=== PATIENT | female | born 2000 | race Two or more races ===

== ENCOUNTER 2019-04-25 06:03 | Emergency (ER) | payer OTHER ==
[~2019-04-25] VITALS: Ht 170.2 cm; Wt 66.7 kg
== END 2019-04-25 14:55 | disposition home or self-care (01) ==
LOC: ER 06:03
DX: N39.0 Urinary tract infection, site not specified (principal); R10.2 Pelvic and perineal pain

== ENCOUNTER 2019-05-08 07:38 | Outpatient (CLI) | payer OTHER | END 2019-05-08 07:45 | disposition home or self-care (01) | LOC: TOM 07:38 | DX: M54.5 Low back pain (principal); Z01.810 Encounter for preprocedural cardiovascular examination; E03.8 Other specified hypothyroidism; E78.49 Other hyperlipidemia; N39.8 Other specified disorders of urinary system ==

== ENCOUNTER 2020-04-29 13:49 | Emergency (ER) | payer OTHER ==
[~2020-04-29] VITALS: Ht 170.2 cm; Wt 66.7 kg
== END 2020-04-29 17:09 | disposition home or self-care (01) ==
LOC: ER 13:49
DX: N39.0 Urinary tract infection, site not specified (principal); R30.0 Dysuria

== ENCOUNTER 2021-03-22 20:52 | Emergency (ER) | payer OTHER ==
[~2021-03-22] VITALS: Ht 172.7 cm; Wt 61.2 kg
== END 2021-03-23 00:06 | disposition home or self-care (01) ==
LOC: ER 20:52
DX: N20.0 Calculus of kidney (principal); N39.0 Urinary tract infection, site not specified; R31.0 Gross hematuria; N83.292 Other ovarian cyst, left side

== ENCOUNTER 2022-02-03 15:18 | Emergency (ER) | payer OTHER ==
[~2022-02-03] VITALS: Ht 170.2 cm; Wt 66.7 kg
[2022-02-03] MEDS ORDERED: PROAIR RESPICL90 MCG IH (15:48)
[2022-02-03] MEDS ORDERED: CIPRO500 MG PO (21:10)
== END 2022-02-03 21:18 | disposition home or self-care (01) ==
LOC: ER 15:18
DX: N39.0 Urinary tract infection, site not specified (principal)

== ENCOUNTER 2023-03-18 08:01 | Outpatient (CLI) | payer OTHER ==
[~2023-03-18 08:01] MED LIST: CIPRO500 MG PO; PROAIR RESPICL90 MCG IH
== END 2023-03-18 09:30 | disposition home or self-care (01) ==
LOC: PRENATAL 08:01
PROVIDERS: ATTEND Obstetrics & Gynecology Maternal & Fetal Medicine
DX: O35.9XX0 Maternal care for (suspected) fetal abnormality and damage, unspecified, not applicable or unspecified (principal); O35.3XX0 Maternal care for (suspected) damage to fetus from viral disease in mother, not applicable or unspecified; Z3A.19 19 weeks gestation of pregnancy

== ENCOUNTER 2023-06-17 09:10 | Outpatient (CLI) | payer OTHER | END 2023-06-17 16:28 | disposition home or self-care (01) | LOC: PRENATAL 09:10 | PROVIDERS: ATTEND Obstetrics & Gynecology Maternal & Fetal Medicine | DX: O35.3XX0 Maternal care for (suspected) damage to fetus from viral disease in mother, not applicable or unspecified (principal); O36.8199 Decreased fetal movements, unspecified trimester, other fetus; O24.419 Gestational diabetes mellitus in pregnancy, unspecified control; Z3A.32 32 weeks gestation of pregnancy ==

== ENCOUNTER 2023-07-01 14:10 | Outpatient (CLI) | payer OTHER | END 2023-07-01 15:10 | disposition home or self-care (01) | LOC: PRENATAL 14:10 | PROVIDERS: ATTEND Obstetrics & Gynecology Maternal & Fetal Medicine | DX: O36.8199 Decreased fetal movements, unspecified trimester, other fetus (principal); O24.419 Gestational diabetes mellitus in pregnancy, unspecified control; O32.9XX0 Maternal care for malpresentation of fetus, unspecified, not applicable or unspecified; Z3A.34 34 weeks gestation of pregnancy ==